=== PATIENT | male | born 1975 | race African-American/Black ===

== ENCOUNTER 2017-12-07 08:43 | Emergency (ER) | payer OTHER ==
[2017-12-07 09:29] LABS: Bilirubin Negative (Negative); Blood, Urine Large (Negative); Glucose, Urine (Dipstick) Negative (Negative); Leukocyte Negative (Negative); Nitrite Negative (Negative); Protein, Urine (Dipstick) 30 mg/dL (Neg-Trace); Specific Gravity, Urine 1.025 (1.005-1.030); pH, Urine 6.5 (5.0-9.0)
[2017-12-07 09:30] LABS: Bacteria/HPF Rare-Few HPF (None Seen); Clarity Hazy (Clear); RBC/HPF GREATER THAN 50-TNTC HPF (0-3); Squamous Epithelial 0-3 HPF (0-3); WBC/HPF 0-3 HPF (0-3)
[2017-12-07] MEDS ORDERED: Morphine 10 MG/ML VIAL ONE (09:53)
[2017-12-07] MEDS ORDERED: diphenhydrAMINE 50 MG/ML VIAL ONE (09:54)
[2017-12-07] MEDS ORDERED: Ketorolac Tromethamine 30 MG/ML VIAL ONE (09:54)
[2017-12-07 10:24] LABS: ALT (SGPT) 19 U/L (8-55); AST (SGOT) 20 U/L (5-34); Albumin 4.4 g/dL (3.5-5.0); Alkaline Phosphatase 65 U/L (40-150); Anion Gap 15 mmol/L (10-20); BUN (Urea Nitrogen) 13 mg/dL (8.9-20.6); Bilirubin, Total 2.1 mg/dL (0.2-1.2); Calc. Creatinine Clearance 0 mL/min (70-130); Calcium 9.7 mg/dL (7.8-10.44); Carbon Dioxide 25 mmol/L (22-29); Chloride 104 mmol/L (98-107); Estimated GFR-MDRD 67; Globulin 3.4 g/dL (2.4-3.5); Glucose 116 mg/dL (70-105); Potassium 3.8 mmol/L (3.5-5.1); Protein, Total 7.8 g/dL (6.0-8.3); Sodium 140 mmol/L (136-145)
[2017-12-07 10:26] LABS: CKMB 1.6 ng/mL (0-6.6); Troponin I Less than 0.010 ng/mL (< 0.028)
[2017-12-07 10:31] LABS: Hemoglobin 14.7 g/dL (14.0-18.0); Mean Corpuscular HGB CONC 33.4 g/dL (32.0-36.0); Mean Corpuscular Hemoglobin 28.8 pg (27.0-31.0); Mean Corpuscular Volume 86.3 fL (78.0-98.0); Mean Platelet Volume 8.7 fL (7.4-10.4); Platelet Count 258 thou/uL (130-400); RBC Distribution Width 12.3 % (11.5-14.5); Red Blood Cell (RBC) Count 5.11 mill/uL (4.70-6.10); White Blood Cell (WBC) Count 6.1 thou/uL (4.8-10.8)
[2017-12-07 10:32] LABS: Anisocytosis SLIGHT = 6-15 cells (100X) (0-5/hpf); Eosinophils 3 % (0-10); Lymphocytes 44 % (21-51); MDiff Complete? YES; Manual Diff?? YES; Monocytes 8 % (0-10); Neutrophil 45 % (42-75); PLT Morphology Comment Appears Adequate
--- NOTE | 2017-12-07 11:00 | CT ---
CT ABDOMEN AND PELVIS WITHOUT CONTRAST STONE PROTOCOL: HISTORY: Left flank pain. COMPARISON: None. FINDINGS: Lung bases are clear. No pericardial effusion. There is extensive left-sided perinephric stranding. Moderate left-sided hydroureteral nephrosis. There is no calculus seen within the renal collecting systems. On the griffin images, there is a punctate calculus of distal left ureter near the ureterov esicular junction seen only on coronal image #75. The appendix is visualized and is normal. No dilated loops of large or small bowel. 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 IMPRESSION: Moderate left-sided hydroureteral nephrosis and perinephric stranding due to a partially obstructing punctate calculus distal left ureter near the ureterovesicular junction measuring approximately 1 mm. POS: MAL
== END 2017-12-07 11:30 | disposition home or self-care (01) ==
LOC: MADERS 08:43
DX: N13.2 Hydronephrosis with renal and ureteral calculous obstruction (principal); I10 Essential (primary) hypertension
CPT/HCPCS: 74176; 80053; 81003; 81015; 82553; 84484; 85025; 93005; 94760; 96374; 96375; J1200; J1885; J2270